=== PATIENT | male | born 1945 | race American Indian/Alaskan Native ===

== ENCOUNTER 2017-01-20 23:13 | Emergency (ER) | payer BC ==
[2017-01-20 23:29] VITALS: TEMP 98.4; O2SAT 98
--- NOTE | 2017-01-20 23:46 | ED PDOC ---
Arrival/HPI <Johnnie Crawford - Last Filed: 01/21/17 01:39> - General Historian: Patient - History of Present Illness Time/Duration: Prior to Arrival Symptom Onset: Sudden Symptom Course: Unchanged Quality: Aching Severity Level: 3 Context: Home <Bull March - Last Filed: 01/21/17 21:57> - General Chief Complaint: Rib Injury Time Seen by Provider: 01/20/17 23:26 - History of Present Illness Narrative History of Present Illness (Text): 72 M with PMH DM, HTN, s/p open heart surgery and valve replacement presents to ED for complaint of rib pain s/p fall. Patient was at home getting into the tub when he slipped and fell. Patient hit right side off the tub. Patient denied LOC and head trauma. Patient states pain is mild and located at rib 4-5 on the right side at midclaviclular line. Nothing alleviates pain while palpation and movement makes it worse. Patient has no other complaints at this time. (Bull March) Past Medical History - Provider Review Nursing Documentation Reviewed: Yes - Travel History Have you recently traveled outside [place] w/in the past 3 mons?: No - Cardiac Hx Hypertension: Yes - Pulmonary Hx Respiratory Disorders: No - Neurological Hx Neurological Disorder: No - HEENT Hx HEENT Disorder: No - Renal Hx Renal Disorder: No - Endocrine/Metabolic Hx Diabetes Mellitus Type 2: Yes - Hematological/Oncological Hx Blood Disorders: No - Integumentary Hx Dermatological Disorder: No - Musculoskeletal/Rheumatological Hx Musculoskeletal Disorders: No - Gastrointestinal Hx Gastrointestinal Disorders: No - Genitourinary/Gynecological Hx Genitourinary Disorders: No - Psychiatric Hx Psychophysiologic Disorder: No Hx Substance Use: No - Surgical History Hx Open Heart Surgery: Yes (2013) <Bull March - Last Filed: 01/21/17 21:57> Family/Social History - Physician Review Nursing Documentation Reviewed: Yes Family/Social History: Unknown Family HX Smoking Status: Never Smoked Hx Alcohol Use: No Hx Substance Use: No <Bull March - Last Filed: 01/21/17 21:57> Allergies/Home Meds <Johnnie Crawford - Last Filed: 01/21/17 01:39> <Bull March - Last Filed: 01/21/17 21:57> Allergies/Adverse Reactions: Allergies No Known Allergies Allergy (Verified 01/20/17 23:24) Home Medications: Home Meds Medication Instructions Recorded Confirmed Enalapril 10 mg DAILY 06/03/13 01/21/17 Metformin 1,000 mg BID 06/03/13 01/21/17 Simvastatin 40 mg DAILY 06/03/13 01/21/17 Review of Systems - Review of Systems Constitutional: absent: Fatigue, Weight Change, Fevers, Night Sweats Eyes: absent: Vision Changes, Photophobia, Eye Pain ENT: absent: Hearing Changes, Tinnitus Respiratory: absent: SOB, Cough, Sputum, Wheezing Cardiovascular: absent: Chest Pain, Palpitations, Syncope Gastrointestinal: absent: Abdominal Pain, Constipation, Diarrhea, Nausea, Vomiting Genitourinary Male: absent: Dysuria, Frequency Musculoskeletal: Arthralgias, Myalgias Skin: absent: Rash, Pruritis, Skin Lesions, Laceration Neurological: absent: Headache, Dizziness Endocrine: absent: Diaphoresis, Polyuria, Polydipsia Hemo/Lymphatic: absent: Adenopathy, Easy Bleeding, Easy Bruising Psychiatric: absent: Anxiety, Depression, Suicidal Ideation <Bull March - Last Filed: 01/21/17 21:57> Physical Exam <Johnnie Crawford - Last Filed: 01/21/17 01:39> Vital Signs Reviewed: Yes Temperature: Afebrile Blood Pressure: Hypertensive Pulse: Regular Respiratory Rate: Normal Appearance: Positive for: Well-Appearing, Non-Toxic, Comfortable Pain Distress: Mild Mental Status: Positive for: Alert and Oriented X 3 - Systems Exam Head: Present: Atraumatic, Normocephalic Pupils: Present: PERRL Extroacular Muscles: Present: EOMI Conjunctiva: Present: Normal Mouth: Present: Moist Mucous Membranes Neck: Present: Normal Range of Motion, Trachea Midline Respiratory/Chest: Present: Clear to Auscultation, Good Air Exchange, Tender to Palpation (R ribs 4-5 mid claviclular line) Cardiovascular: Present: Regular Rate and Rhythm, Murmurs, Normal S1, S2, Peripheal Pulses Present Abdomen: Present: Normal Bowel Sounds. No: Tenderness, Distention, Peritoneal Signs, Rebound, Guarding Back: No: CVA Tenderness Upper Extremity: Present: Normal ROM, NORMAL PULSES, Neurovascularly Intact, Capillary Refill < 2s Lower Extremity: Present: NORMAL PULSES, Normal ROM, Neurovascularly Intact, Capillary Refill < 2 s Neurological: Present: GCS=15, CN II-XII Intact, Speech Normal, Motor Func Grossly Intact, Normal Sensory Function Skin: Present: Warm, Dry, Normal Color Lymphatic: No: Cervical Adenopathy, Axillary Adenopathy, Inguinal Adenopathy Psychiatric: Present: Alert, Oriented x 3, Normal Insight, Normal Concentration <Bull March - Last Filed: 01/21/17 21:57> Vital Signs Temp Pulse Resp BP Pulse Ox 01/21/17 01:42 84 16 164/82 H 01/20/17 23:25 98.4 F 71 18 193/85 H 98 Medical Decision Making <Johnnie Crawford - Last Filed: 01/21/17 01:39> <Bull March - Last Filed: 01/21/17 21:57> ED Course and Treatment: Impression: Pt seen and evaluated with medical technical writer. Pt, whose past medical history includes diabetes, hypertension, CABG, and valve replacement, presented for right lateral rib pain s/p fall. States he slipped while getting out of the bathub and landed on his right side against the tub. Aware and agree with HPI, clinical findings, plan, and management. Plan: -- XR Right Ribs/Chest -- Tylenol -- Reassess and disposition (Johnnie Crawford) R Rib series and PA chest XR Tylenol xrays are negative. Patient may take OTC ibuprofen or tylenol for pain. Stable for discharge. (Bull March) - RAD Interpretation Radiology Orders: 01/20/17 23:34 RIBS RIGHT & PA CHEST [RAD] Stat - Medication Orders Current Medication Orders: Discontinued Medications Acetaminophen (Tylenol 325mg Tab) 975 mg PO STAT STA Stop: 01/21/17 01:30 Last Admin: 01/21/17 01:41 Dose: 975 mg - PA / PUBLICITY DIRECTOR / Resident Statement / has reviewed & agrees with the documentation as recorded. COOPER has examined the patient and agrees with the treatment plan. <Johnnie Crawford - Last Filed: 01/21/17 01:39> Disposition/Present on Arrival <Johnnie Crawford - Last Filed: 01/21/17 01:39> - Present on Arrival Any Indicators Present on Arrival: No History of DVT/PE: No History of Uncontrolled Diabetes: No Urinary Catheter: No History of Decub. Ulcer: No History Surgical Site Infection Following: None - Disposition Have Diagnosis and Disposition been Completed?: Yes Disposition Time: 01:30 (0) Patient Plan: Discharge <BrennonvenusBull mccain - Last Filed: 01/21/17 21:57> - Disposition Diagnosis: Rib contusion, Intercostal muscle pain Disposition: HOME/ ROUTINE Condition: GOOD Discharge Instructions (ExitCare): Rib Contusion (ED) Additional Instructions: Thank you for letting us take care of you today. Your provider was Dr. March /Dr. Caballero. You were treated for Rib contusion/Intercostal muscle strain. The emergency medical care you received today was directed at your acute symptoms. If you were prescribed any medication, please fill it and take as directed. It may take several days for your symptoms to resolve. Return to the Emergency Department if your symptoms worsen, do not improve, or if you have any other problems. Please contact your doctor or call one of the physicians/clinics you have been referred to that are listed on the Patient Visit Information form that is included in your discharge packet. Bring any paperwork you were given at discharge with you along with any medications you are taking to your follow up visit. Our treatment cannot replace ongoing medical care by a primary care provider (PCP) outside of the emergency department. Thank you for allowing the [facility] team to be part of your care today. If you had an X-Ray or CT scan: A Radiologist will review the ED reading if any change in treatment is needed we will contact you. If you had a blood, urine, or wound culture: It will take several days for the results, if any change in treatment is needed we will contact you. If you had an STI test: It will take 48 hours for the results. Please call after 1 week if you have not heard back. Take Tylenol for pain Follow up with PMD within 2-3 days Please return to ED if symptoms persists or condition worsens Prescriptions: Acetaminophen [Tylenol 325mg tab] 650 mg PO Q6H PRN #30 tab PRN Reason: Pain, Mild (1-3) Forms: [employer] (Urdu)
[2017-01-21 01:42] VITALS: BP 164/82; PULSE 84; RESP 16
--- NOTE | 2017-01-21 09:50 | RAD ---
PROCEDURE: Radiographs of the Chest and Right Ribs. HISTORY: s/p fall COMPARISON: None available. TECHNIQUE: Frontal radiograph of the chest and multiple oblique radiographs of the right ribs were obtained. FINDINGS: RIGHT RIBS: No fracture or focal lesion visualized. LUNGS: Clear. PLEURA: No pneumothorax or pleural fluid. CARDIOVASCULAR: Normal sized heart. No pulmonary vascular congestion. OTHER FINDINGS: None. IMPRESSION: Unremarkable radiographs of the chest and right ribs. No right rib fracture.
== END 2017-01-21 01:43 | disposition home or self-care (01) ==
LOC: ED 23:13
DX: S20.211A Contusion of right front wall of thorax, initial encounter (principal); W01.0XXA Fall on same level from slipping, tripping and stumbling without subsequent striking against object, initial encounter; Y93.E1 Activity, personal bathing and showering; Y92.002 Bathroom of unspecified non-institutional (private) residence as the place of occurrence of the external cause